=== PATIENT | male | born 1995 ===

== ENCOUNTER 2022-05-26 00:15 | Emergency (ER) | payer OTHER ==
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
[2022-05-26] MEDS ORDERED: MORPHINE 4 MG/ML SYR ONE ×2 (01:07→02:07)
[2022-05-26] MEDS ORDERED: CLINDAMYCIN 600MG/D5W 600 MG/50 ML BAG IV ONE (01:07)
[2022-05-26 01:14] LABS: Absolute Lymphocytes (CBC) 1.2 K/uL (0.7-4.9); Hematocrit 32.9 % (39.6-49.0); Lymphocytes % 8.8 % (15.3-44.8); MCV 87.6 fL (80-100); RBC Red Blood Cell Count 3.75 M/uL (4.33-5.43)
[2022-05-26 03:30] LABS: SARS-CoV-2 Antigen Rapid Res Negative (Negative)
[2022-05-26] MEDS ORDERED: HYDROCODONE/APAP 5/325 MG TAB ONE (04:24)
[2022-05-26 04:55] VITALS: TEMP 97.6
[2022-05-26 04:57] VITALS: BP 127/85; O2SAT 98
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
== END 2022-05-26 04:44 | disposition home or self-care (01) ==
LOC: ER 00:15
DX: S02.609A Fracture of mandible, unspecified, initial encounter for closed fracture (principal); D64.9 Anemia, unspecified; K08.89 Other specified disorders of teeth and supporting structures; Z20.822 Contact with and (suspected) exposure to COVID-19
CPT/HCPCS: 36415; 70450; 70486; 72125; 76377; 80048; 85025; 87811; 96365; 96375; 99284